=== PATIENT | female | born 1945 | race Caucasian/White ===

== ENCOUNTER → 2016-12-14 17:05 | Outpatient (CLI) | payer MEDICARE, OTHER ==
[2016-02-17 16:26] VITALS: BMI 31.9
[~2016-12-14 17:05] MED LIST: ATIVAN0.5 MG PO; BACTROBAN NASAL1 GM NASAL; BAYER CHEWABLE81 MG PO; BONIVA150 MG; BRILINTA90 MG PO; CARAFATE1 G PO; CARTIA XT240 MG PO; CENTRUM COMPLE1 EACH PO; CLOBETASOL PROP50 ML TOPICAL; CLOBETASOL PROP60 GM TP; COZAAR100 MG PO; DAYPRO600 MG PO; DEXILANT60 MG PO; ELIQUIS2.5 MG PO; ENULOSE10 G/15 ML PO; FERROUS SULFAT325 MG PO; FLUTICASONE PRO16 GM NS; HYDROCHLOROTH12.5 M1 PO; K-DUR20 MEQ PO; K-PHOS ORIGINA500 MG PO; LASIX40 MG PO; LEVAQUIN500 MG PO; LEVOTHROID25 MCG PO; LIBRIUM25 MG PO; LOPRESSOR50 MG PO; MACROBID100 MG PO; MAG-OX 400 MG400 MG PO; MAGNESIUM OXID500 MG PO; MICARDIS HCT 81 EACH PO; MICARDIS80 MG PO; MULTI-DAY VITAM1 TAB PO; NAPROSYN500 MG PO; NIFEREX PO; OXYCODONE HCL5 MG PO; PEPCID20 MG PO; POTASSIUM; SYNTHROID50 MCG PO; TEMOVATE30 GM TOPICAL; THERAGRAN-M ADV1 TA1 PO; TOPROL XL50 MG PO; VIBRAMYCIN50 MG PO
== END | disposition home or self-care (01) ==
LOC: D.MAMMO 10:15
DX: Z12.31 Encounter for screening mammogram for malignant neoplasm of breast (principal)

== ENCOUNTER 2017-03-07 11:37 | Emergency (ER) | payer MEDICARE, OTHER ==
[2016-02-17 16:26] VITALS: BMI 31.9
[2017-03-07 12:15] LABS: BASOPHILS 0.3 % (0-2); EOSINOPHILS 2.8 % (0-7); HEMATOCRIT 31.2 % (36.0-48.0); HEMOGLOBIN 10.1 g/dL (12-16); IMMATURE GRANULOCYTES 0.2 % (0-5); LYMPHOCYTES 34.2 % (15-50); MCH 27.7 pg (26.0-34.0); MCHC 32.4 g/dL (31.0-37.0); MCV 85.5 fL (80.0-100.0); MEAN PLATELET VOLUME 8.8 fL (7.4-10.4); MONOCYTES 11.8 % (2-11); NEUTROPHILS 50.7 % (40-80); PLATELET COUNT 192 10x3/uL (130-400); RBC 3.65 10x6/uL (4.00-5.40); RDW 14.6 % (11.5-14.5); WBC 6.4 10x3/uL (4.8-10.8)
[2017-03-07 12:34] LABS: ALBUMIN 3.9 g/dL (3.4-5.0); ALKALINE PHOSPHATASE 68 U/L (46-116); ALT (SGPT) 27 U/L (10-68); BILIRUBIN - TOTAL 0.38 mg/dL (0.2-1.3); CALC OSMOLALITY 272 mosm/kg (275-300); CALCIUM 9.1 mg/dL (8.5-10.1); CARBON DIOXIDE 23.4 mmol/L (21.0-32.0); CHLORIDE - SERUM 103 mmol/L (98-107); GLUCOSE 86 mg/dL (74-106); POTASSIUM - SERUM 4.3 mmol/L (3.5-5.1); PROTEIN - SERUM 7.5 g/dL (6.4-8.2); SODIUM 136 mmol/L (136-145); UREA NITROGEN 18 mg/dL (7-18); eGFR NON AFRICAN AMERICAN 58 mL/min (90-120)
[2017-03-07 12:38] LABS: CREATINE KINASE 96 UL (21-215); TROPONIN-I < 0.017 ng/mL (0.000-0.060)
[2017-03-07 13:55] LABS: MAGNESIUM - SERUM 1.5 mg/dL (1.8-2.4); THYROID STIMULATING HORMONE 1.56 uIU/mL (0.36-3.74)
== END 2017-03-07 15:03 | disposition home or self-care (01) ==
LOC: D.ER 11:37
PROVIDERS: Emergency Medicine
DX: R06.00 Dyspnea, unspecified (principal); R07.9 Chest pain, unspecified; I10 Essential (primary) hypertension; E03.9 Hypothyroidism, unspecified; D64.9 Anemia, unspecified

== ENCOUNTER → 2017-06-23 12:10 | Outpatient (CLI) | payer MEDICARE, OTHER ==
[2016-02-17 16:26] VITALS: BMI 31.9
[2017-06-23 14:25] LABS: BASOPHILS 0.3 % (0-2); EOSINOPHILS 2.5 % (0-7); HEMATOCRIT 38.7 % (36.0-48.0); IMMATURE GRANULOCYTES 0.2 % (0-5); LYMPHOCYTES 29.9 % (15-50); MCH 31.8 pg (26.0-34.0); MCHC 33.6 g/dL (31.0-37.0); MCV 94.6 fL (80.0-100.0); MEAN PLATELET VOLUME 9.6 fL (7.4-10.4); MONOCYTES 12.8 % (2-11); NEUTROPHILS 54.3 % (40-80); PLATELET COUNT 208 10x3/uL (130-400); RBC 4.09 10x6/uL (4.00-5.40); RDW 13.5 % (11.5-14.5)
[2017-06-23 15:31] LABS: ERYTHROCYTE SEDIMENTATION RATE 12 mm/hr (0-30)
== END | disposition home or self-care (01) ==
LOC: D.LABREF 12:10
PROVIDERS: Orthopaedic Surgery
DX: M25.562 Pain in left knee (principal)

== ENCOUNTER → 2017-07-06 07:39 | Outpatient (CLI) | payer MEDICARE, OTHER ==
[2016-02-17 16:26] VITALS: BMI 31.9
== END | disposition home or self-care (01) ==
LOC: D.NM 07:39
DX: M25.562 Pain in left knee (principal)